=== PATIENT | male | born 1960 | race Caucasian/White ===

== ENCOUNTER 2021-03-16 11:48 | Inpatient (IN) | payer OTHER ==
--- NOTE | 2021-03-16 12:46 | CR ---
Chest: Portable view of the chest was obtained. Comparison: No prior chest imaging is available. Slight patchy areas of increased density are seen within both sides of the chest. Findings raise the possibility of possible Covid pneumonia. Lungs otherwise are clear. Heart size is normal. Tortuous thoracic aorta is seen. Bony structures show nothing acute. Impression: 1. Findings suspicious for mild Covid pneumonia. Please correlate. 2. Nothing acute is otherwise seen. Diagnostic code #3
[2021-03-16] MEDS ORDERED: Dexamethasone 4 MG Tab PO ONE (13:08)
[2021-03-16] MEDS ORDERED: Ketorolac 30 MG/ML SDV IVPUSH ONE (13:08)
[2021-03-16] MEDS ORDERED: LORazepam 2 MG/ML SDV IVPUSH ONE (13:08)
--- NOTE | 2021-03-16 13:26 | EDM.PDOC ---
ED HPI GENERAL MEDICAL PROBLEM - General Chief Complaint: Respiratory Problem Stated Complaint: SOB Time Seen by Provider: 03/16/21 12:10 Source of Information: Reports: Patient, Family, RN Notes Reviewed History Limitations: Reports: No Limitations - History of Present Illness INITIAL COMMENTS - FREE TEXT/NARRATIVE: Is a 60-year-old male presenting to the emergency department with complaints of Covid symptoms. Reports became ill approximately 6 days ago. Complains of fever, chills, body aches, fatigue, cough, shortness of breath. Does have some chest discomfort with coughing or deep breathing but denies chest pain at rest. He has had no abdominal pain, nausea, vomiting, or diarrhea. Reports has been eating and drinking well. Denies any chronic underlying medical conditions. He took NyQuil around 2 AM this morning but has taken nothing since that time. 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 He was not vaccinated against Covid. Treatments PSYCHOLOGY ASSOCIATE: Reports: Other (see below) Other Treatments PSYCHOLOGY ASSOCIATE: none Generalized Pain Score (Numeric/FACES): 7 - Related Data Allergies Allergy/AdvReac Type Severity Reaction Status Date / Time Penicillins Allergy Intermediate Rash Verified 03/16/21 16:09 codeine AdvReac Mild Vomiting Verified 03/16/21 16:03 Home Meds: Home Meds . [No Known Home Meds] 03/16/21 [History] Past Medical History - Past Health History Medical/Surgical History: Denies Medical/Surgical History - Infectious Disease History Infectious Disease History: Reports: Chicken Pox, Mumps Social & Family History - Tobacco Use Tobacco Use Status *Q: Former Tobacco User Used Tobacco, but Quit: Yes Month/Year Tobacco Last Used: 5 - Caffeine Use Caffeine Use: Reports: None - Recreational Drug Use Recreational Drug Use: No ED ROS GENERAL - Review of Systems Review Of Systems: See Below Constitutional: Reports: Fever, Chills, Weakness, Fatigue HEENT: Reports: No Symptoms Respiratory: Reports: Shortness of Breath, Pleuritic Chest Pain, Cough Cardiovascular: Reports: Dyspnea on Exertion. Denies: Lightheadedness, Palpitations Endocrine: Reports: No Symptoms GI/Abdominal: Reports: No Symptoms : Reports: No Symptoms Musculoskeletal: Reports: No Symptoms Skin: Reports: No Symptoms Neurological: Reports: No Symptoms Psychiatric: Reports: No Symptoms Hematologic/Lymphatic: Reports: No Symptoms Immunologic: Reports: No Symptoms ED EXAM, GENERAL - Physical Exam Exam: See Below Exam Limited By: No Limitations General Appearance: Alert, WD/WN, Anxious Respiratory/Chest: No Respiratory Distress, No Accessory Muscle Use, Chest Non-Tender, Decreased Breath Sounds, Other (Fine crackles to bilateral bases posteriorly.) Cardiovascular: Normal Peripheral Pulses, Regular Rate, Rhythm, No Edema, No Gallop, No JVD, No Murmur, No Rub GI/Abdominal: Normal Bowel Sounds, Soft, Non-Tender, No Organomegaly, No Distention, No Abnormal Bruit, No Mass Neurological: Alert, Oriented, CN II-XII Intact, Normal Cognition, Normal Gait, Normal Reflexes, No Motor/Sensory Deficits Psychiatric: Anxious Skin Exam: Warm, Dry, Intact, Normal Color, No Rash #1 Interpretation EKG Date: 03/16/21 Time: 12:43 Rhythm: NSR Rate (Beats/Min): 98 [place]: Normal P-Wave: Present QRS: Normal ST-T: Normal QT: Normal DE/PQ Interval: borderline shortened RADHA Course - Vital Signs Last Recorded V/S: Last Vital Signs Temp 97.5 F 03/16/21 15:19 Pulse 86 03/16/21 15:19 Resp 16 03/16/21 15:19 BP 123/73 03/16/21 15:19 Pulse Ox 94 L 03/16/21 15:19 - Orders/Labs/Meds Orders: Active Orders 24 hr Category Date Time Status Admission Status [Patient Status] [ADT] Routine ADT 03/16/21 14:50 Active Medication Orders Acetaminophen (Acetaminophen 325 Mg Tab) 650 mg PO Q4H PRN PRN Reason: Pain (Mild 1-3)/fever Hydrocodone Bitart/Acetaminophen (Acetaminophen/Hydrocodone 325-5 Mg Tab) 1 tab PO Q4H PRN PRN Reason: Pain (moderate 4-6) Albuterol (Albuterol 6.7 Gm Inhaler) 0 gm INH Q4H PRN PRN Reason: Shortness of Breath Albuterol/Ipratropium (Albuterol/Ipratropium 3.0-0.5 Mg/3 Ml Neb Soln) 3 ml NEB Q4HRRT PRN PRN Reason: Shortness of Breath Benzonatate (Benzonatate 100 Mg Cap) 200 mg PO Q8H PRN PRN Reason: Cough Dexamethasone (Dexamethasone 4 Mg Tab) 6 mg PO DAILY [facility] Stop: 03/25/21 09:01 Enoxaparin Sodium (Enoxaparin 40 Mg/0.4 Ml Syringe) 40 mg SUBCUT DAILY [facility] Guaifenesin/Codeine Phosphate (Codeine/Guaifenesin 10-100 Mg/5 Ml Syrup 5 Ml Cup) 5 ml PO Q4H PRN PRN Reason: Cough Remdesivir 100 mg/ Sodium (Chloride) 100 mls @ 100 mls/hr IV Q24H [facility] Stop: 03/20/21 17:59 Ondansetron HCl (Ondansetron 4 Mg/2 Ml Sdv) 4 mg IV Q6H PRN PRN Reason: Nausea/Vomiting Labs: Laboratory Tests 03/16/21 03/16/21 03/16/21 Range/Units 12:20 12:55 12:55 WBC 5.42 (4.23-9.07) K/mm3 RBC 5.74 (4.63-6.08) M/mm3 Hgb 16.5 (13.7-17.5) gm/dl Hct 51.5 H (40.1-51.0) % MCV 89.7 (79.0-92.2) fl MCH 28.7 (25.7-32.2) pg MCHC 32.0 L (32.2-35.5) g/dl RDW Std Deviation 47.1 H (35.1-43.9) fL Plt Count 152 L (163-337) K/mm3 MPV 11.6 (9.4-12.3) fl Neut % (Auto) 82.2 H (34.0-67.9) % Lymph % (Auto) 11.1 L (21.8-53.1) % [place] % (Auto) 5.9 (5.3-12.2) % Eos % (Auto) 0.2 L (0.8-7.0) Baso % (Auto) 0.2 (0.1-1.2) % Neut # (Auto) 4.46 (1.78-5.38) K/mm3 Lymph # (Auto) 0.60 L (1.32-3.57) K/mm3 [place] # (Auto) 0.32 (0.30-0.82) K/mm3 Eos # (Auto) 0.01 L (0.04-0.54) K/mm3 Baso # (Auto) 0.01 (0.01-0.08) K/mm3 D-Dimer, Quantitative 0.76 H (0.19-0.50) mg/L Sodium (136-145) mEq/L Potassium (3.5-5.1) mEq/L Chloride (98-107) mEq/L Carbon Dioxide (21-32) mEq/L Anion Gap (5-15) BUN (7-18) mg/dL Creatinine (0.7-1.3) mg/dL Est Cr Clr Drug Dosing mL/min Estimated GFR (MDRD) (>60) mL/min BUN/Creatinine Ratio (14-18) Glucose (70-99) mg/dL Calcium (8.5-10.1) mg/dL Total Bilirubin (0.2-1.0) mg/dL AST (15-37) U/L ALT (16-63) U/L Alkaline Phosphatase (46-116) U/L Troponin I (0.00-0.056) ng/mL C-Reactive Protein (<1.0) mg/dL NT-Pro-B Natriuret Pep (0-125) pg/mL Total Protein (6.4-8.2) g/dl Albumin (3.4-5.0) g/dl Globulin gm/dL Albumin/Globulin Ratio (1-2) SARS-CoV-2 RNA (DERRELL) Positive H (NEGATIVE) 03/16/21 03/16/21 Range/Units 12:55 12:55 WBC (4.23-9.07) K/mm3 RBC (4.63-6.08) M/mm3 Hgb (13.7-17.5) gm/dl Hct (40.1-51.0) % MCV (79.0-92.2) fl MCH (25.7-32.2) pg MCHC (32.2-35.5) g/dl RDW Std Deviation (35.1-43.9) fL Plt Count (163-337) K/mm3 MPV (9.4-12.3) fl Neut % (Auto) (34.0-67.9) % Lymph % (Auto) (21.8-53.1) % [place] % (Auto) (5.3-12.2) % Eos % (Auto) (0.8-7.0) Baso % (Auto) (0.1-1.2) % Neut # (Auto) (1.78-5.38) K/mm3 Lymph # (Auto) (1.32-3.57) K/mm3 [place] # (Auto) (0.30-0.82) K/mm3 Eos # (Auto) (0.04-0.54) K/mm3 Baso # (Auto) (0.01-0.08) K/mm3 D-Dimer, Quantitative (0.19-0.50) mg/L Sodium 137 (136-145) mEq/L Potassium 3.8 (3.5-5.1) mEq/L Chloride 102 (98-107) mEq/L Carbon Dioxide 27 (21-32) mEq/L Anion Gap 11.8 (5-15) BUN 18 (7-18) mg/dL Creatinine 1.3 (0.7-1.3) mg/dL Est Cr Clr Drug Dosing 69.61 mL/min Estimated GFR (MDRD) 56 (>60) mL/min BUN/Creatinine Ratio 13.8 L (14-18) Glucose 152 H (70-99) mg/dL Calcium 8.5 (8.5-10.1) mg/dL Total Bilirubin 0.5 (0.2-1.0) mg/dL AST 37 (15-37) U/L ALT 34 (16-63) U/L Alkaline Phosphatase 110 (46-116) U/L Troponin I < 0.017 (0.00-0.056) ng/mL C-Reactive Protein 5.7 H* (<1.0) mg/dL NT-Pro-B Natriuret Pep 58 (0-125) pg/mL Total Protein 7.1 (6.4-8.2) g/dl Albumin 2.9 L (3.4-5.0) g/dl Globulin 4.2 gm/dL Albumin/Globulin Ratio 0.7 L (1-2) SARS-CoV-2 RNA (DERRELL) (NEGATIVE) Meds: Medications Generic Name Dose Route Start Last Admin Trade Name Freq PRN Reason Stop Dose Admin Acetaminophen 650 mg 03/16/21 15:59 Acetaminophen 325 Mg Tab PO Q4H PRN Pain (Mild 1-3)/fever Hydrocodone Bitart/Acetaminophen 1 tab 03/16/21 16:08 Acetaminophen/Hydrocodone 325-5 Mg Tab PO Q4H PRN Pain (moderate 4-6) Albuterol 0 gm 03/16/21 16:04 Albuterol 6.7 Gm Inhaler INH Q4H PRN Shortness of Breath Albuterol/Ipratropium 3 ml 03/16/21 16:04 Albuterol/Ipratropium 3.0-0.5 Mg/3 Ml Neb Soln NEB Q4HRRT PRN Shortness of Breath Benzonatate 200 mg 03/16/21 16:06 Benzonatate 100 Mg Cap PO Q8H PRN Cough Dexamethasone 6 mg 03/17/21 09:00 Dexamethasone 4 Mg Tab PO 03/25/21 09:01 DAILY [facility] Enoxaparin Sodium 40 mg 03/17/21 09:00 Enoxaparin 40 Mg/0.4 Ml Syringe SUBCUT DAILY [facility] Guaifenesin/Codeine Phosphate 5 ml 03/16/21 16:07 Codeine/Guaifenesin 10-100 Mg/5 Ml Syrup 5 Ml Cup PO Q4H PRN Cough Remdesivir 100 mg/ Sodium 100 mls @ 100 mls/hr 03/17/21 17:00 Chloride IV 03/20/21 17:59 Q24H [facility] Ondansetron HCl 4 mg 03/16/21 15:59 Ondansetron 4 Mg/2 Ml Sdv IV Q6H PRN Nausea/Vomiting Discontinued Medications Generic Name Dose Route Start Last Admin Trade Name Freq PRN Reason Stop Dose Admin Dexamethasone 6 mg 03/16/21 13:08 03/16/21 13:20 Dexamethasone 4 Mg Tab PO 03/16/21 13:09 6 mg ONETIME ONE Administration Remdesivir 200 mg/ Sodium 250 mls @ 250 mls/hr 03/16/21 17:00 03/16/21 17:03 Chloride IV 03/16/21 17:59 250 mls/hr ONETIME ONE Administration Ketorolac Tromethamine 30 mg 03/16/21 13:08 03/16/21 13:19 Ketorolac 30 Mg/Ml Sdv IVPUSH 03/16/21 13:09 30 mg ONETIME ONE Administration Lorazepam 0.5 mg 03/16/21 13:08 03/16/21 13:19 Lorazepam 2 Mg/Ml Sdv IVPUSH 03/16/21 13:09 0.5 mg ONETIME ONE Administration - Re-Assessments/Exams Free Text/Narrative Re-Assessment/Exam: Patient is a 60-year-old male presenting to the emergency department for evaluation of Covid symptoms. Has been ill for approximately 6 days. Initial oxygen saturation on triage was 92%, however he came down to 86% on room air when resting. He is currently on 3 L of oxygen by nasal cannula saturating in the low to mid 90s. On exam, lung sounds reveal fine crackles to the bilateral posterior bases. Exam is otherwise unremarkable. Patient is very anxious. Reports he gets very claustrophobic and that he is "freaking out ". He also reports he does not do well with needles. Patient has not taken any thing for pain or fever since 2 AM this morning when he took NyQuil. Presentation is highly suspicious for Covid. I ordered blood work, chest x-ray, EKG, Covid indira t. I will give Toradol, Ativan, and dexamethasone. 03/16/21 14:06 Hematology is significant for D-dimer elevated 0.76, glucose 152, CRP 5.7. Patient is Covid positive. Chest x-ray shows mild bilateral Covid pneumonia. Patient is resting comfortably after the Ativan. He is in agreement with admission to the hospital for Covid pneumonia and hypoxia. Case was discussed with hospitalist, Dr. Kamara. He has accepted the patient for admission. Departure - Departure Time of Disposition: 14:06 Disposition: Admitted As Inpatient 66 Condition: Good Clinical Impression: Pneumonia due to COVID-19 virus, Hypoxia - Discharge Information Sepsis Event Note (ED) - Focused Exam Vital Signs: Vital Signs Temp Pulse Resp BP Pulse Ox Pulse Ox 03/16/21 12:48 90 L 03/16/21 12:10 97.5 F 88 20 133/78 92 L - My Orders Last 24 Hours: My Active Orders 03/16/21 14:50 Admission Status [Patient Status] [ADT] Routine - Assessment/Plan Last 24 Hours: My Active Orders 03/16/21 14:50 Admission Status [Patient Status] [ADT] Routine
--- NOTE | 2021-03-16 15:15 | PCM.HP.2 ---
<PetersongilesLisa mata - Last Filed: 03/16/21 16:10> H&P History of Present Illness - General Date of Service: 03/16/21 Admit Problem/Dx: Admission Diagnosis/Problem Admission Diagnosis/Problem Hypoxia Source of Information: Patient, Other (ED admission note) History Limitations: Reports: Altered Mental Status - History of Present Illness Initial Comments - Free Text/Narative: Ignacio is a 60yo white male who presented to the ED on 03/16/2021 due to worsening shortness of breath. History was difficult to obtain from patient as he was moderately sedated, so most of history is from ED documentation. Symptoms started 7 days ago and include fever, chills, cough, shortness of breath, and fatigue. He denies abdominal pain, nausea, vomiting or diarrhea. Eating and drinking has been normal. He denies any other medical problems. Denies any sick contacts and has not received COVID-19 vaccination. COVID-19 test was positive in the ED. CRP was 5.7, D-dimer was 0.76 in the ED. CXR showed slightly patchy infiltrates in lungs bilaterally consistent with COVID-19 pneumonia. Patient received Ativan 0.5mg and Toradol 30mg secondary to anxiety and claustrophobia from telemetry monitors and pain of 7/10 in ED. Generalized Pain Score (Numeric/FACES): 7 - Related Data Allergies/Adverse Reactions: Allergies Allergy/AdvReac Type Severity Reaction Status Date / Time Penicillins Allergy Intermediate Rash Verified 03/16/21 16:09 codeine AdvReac Mild Vomiting Verified 03/16/21 16:03 Home Medications: Home Meds . [No Known Home Meds] 03/16/21 [History] Past Medical History - Past Health History Medical/Surgical History: Denies Medical/Surgical History - Infectious Disease History Infectious Disease History: Reports: Chicken Pox, Mumps Social & Family History - Tobacco Use Tobacco Use Status *Q: Former Tobacco User Used Tobacco, but Quit: Yes Month/Year Tobacco Last Used: 5 - Caffeine Use Caffeine Use: Reports: None - Recreational Drug Use Recreational Drug Use: No H&P Review of Systems - Review of Systems: Review Of Systems: Comprehensive ROS is negative, except as noted in HPI. Exam - Exam Exam: See Below - Vital Signs Vital Signs: Last Vital Signs Temp 97.5 F 03/16/21 12:10 Pulse 88 11/03/21 12:10 Resp 20 03/16/21 12:10 BP 133/78 03/16/21 12:10 Pulse Ox 90 L 03/16/21 12:48 Weight: 179 lb 9 oz - Exam Quality Assessment: Supplemental Oxygen General: Cooperative, Sedated HEENT: Conjunctiva Clear, EOMI, Hearing Intact, Mucosa Moist & [place], Pupils Equal Lungs: Crackles (in all lung fernando), Other (requiring 4.0L supplemental O2 by nasal cannula) Cardiovascular: Regular Rate, Regular Rhythm, Normal S1, Normal S2 GI/Abdominal Exam: Normal Bowel Sounds, Soft, Non-Tender, No Distention Extremities: Normal Inspection, No Pedal Edema Neurological: Cranial Nerves Intact Neuro Extensive - Mental Status: Opens Eyes to Commands, Slow Response to Commands, Other (moderately sedated at time of exam) Psychiatric: Normal Affect, Normal Mood - Patient Data Lab Results Last 24 hrs: Laboratory Results - last 24 hr 03/16/21 03/16/21 03/16/21 Range/Units 12:20 12:55 12:55 WBC 5.42 (4.23-9.07) K/mm3 RBC 5.74 (4.63-6.08) M/mm3 Hgb 16.5 (13.7-17.5) gm/dl Hct 51.5 H (40.1-51.0) % MCV 89.7 (79.0-92.2) fl MCH 28.7 (25.7-32.2) pg MCHC 32.0 L (32.2-35.5) g/dl RDW Std Deviation 47.1 H (35.1-43.9) fL Plt Count 152 L (163-337) K/mm3 MPV 11.6 (9.4-12.3) fl Neut % (Auto) 82.2 H (34.0-67.9) % Lymph % (Auto) 11.1 L (21.8-53.1) % [place] % (Auto) 5.9 (5.3-12.2) % Eos % (Auto) 0.2 L (0.8-7.0) Baso % (Auto) 0.2 (0.1-1.2) % Neut # (Auto) 4.46 (1.78-5.38) K/mm3 Lymph # (Auto) 0.60 L (1.32-3.57) K/mm3 [place] # (Auto) 0.32 (0.30-0.82) K/mm3 Eos # (Auto) 0.01 L (0.04-0.54) K/mm3 Baso # (Auto) 0.01 (0.01-0.08) K/mm3 D-Dimer, Quantitative 0.76 H (0.19-0.50) mg/L Sodium (136-145) mEq/L Potassium (3.5-5.1) mEq/L Chloride (98-107) mEq/L Carbon Dioxide (21-32) mEq/L Anion Gap (5-15) BUN (7-18) mg/dL Creatinine (0.7-1.3) mg/dL Est Cr Clr Drug Dosing mL/min Estimated GFR (MDRD) (>60) mL/min BUN/Creatinine Ratio (14-18) Glucose (70-99) mg/dL Calcium (8.5-10.1) mg/dL Total Bilirubin (0.2-1.0) mg/dL AST (15-37) U/L ALT (16-63) U/L Alkaline Phosphatase (46-116) U/L Troponin I (0.00-0.056) ng/mL C-Reactive Protein (<1.0) mg/dL NT-Pro-B Natriuret Pep (0-125) pg/mL Total Protein (6.4-8.2) g/dl Albumin (3.4-5.0) g/dl Globulin gm/dL Albumin/Globulin Ratio (1-2) SARS-CoV-2 RNA (DERRELL) Positive H (NEGATIVE) 03/16/21 03/16/21 Range/Units 12:55 12:55 WBC (4.23-9.07) K/mm3 RBC (4.63-6.08) M/mm3 Hgb (13.7-17.5) gm/dl Hct (40.1-51.0) % MCV (79.0-92.2) fl MCH (25.7-32.2) pg MCHC (32.2-35.5) g/dl RDW Std Deviation (35.1-43.9) fL Plt Count (163-337) K/mm3 MPV (9.4-12.3) fl Neut % (Auto) (34.0-67.9) % Lymph % (Auto) (21.8-53.1) % [place] % (Auto) (5.3-12.2) % Eos % (Auto) (0.8-7.0) Baso % (Auto) (0.1-1.2) % Neut # (Auto) (1.78-5.38) K/mm3 Lymph # (Auto) (1.32-3.57) K/mm3 [place] # (Auto) (0.30-0.82) K/mm3 Eos # (Auto) (0.04-0.54) K/mm3 Baso # (Auto) (0.01-0.08) K/mm3 D-Dimer, Quantitative (0.19-0.50) mg/L Sodium 137 (136-145) mEq/L Potassium 3.8 (3.5-5.1) mEq/L Chloride 102 (98-107) mEq/L Carbon Dioxide 27 (21-32) mEq/L Anion Gap 11.8 (5-15) BUN 18 (7-18) mg/dL Creatinine 1.3 (0.7-1.3) mg/dL Est Cr Clr Drug Dosing 69.61 mL/min Estimated GFR (MDRD) 56 (>60) mL/min BUN/Creatinine Ratio 13.8 L (14-18) Glucose 152 H (70-99) mg/dL Calcium 8.5 (8.5-10.1) mg/dL Total Bilirubin 0.5 (0.2-1.0) mg/dL AST 37 (15-37) U/L ALT 34 (16-63) U/L Alkaline Phosphatase 110 (46-116) U/L Troponin I < 0.017 (0.00-0.056) ng/mL C-Reactive Protein 5.7 H* (<1.0) mg/dL NT-Pro-B Natriuret Pep 58 (0-125) pg/mL Total Protein 7.1 (6.4-8.2) g/dl Albumin 2.9 L (3.4-5.0) g/dl Globulin 4.2 gm/dL Albumin/Globulin Ratio 0.7 L (1-2) SARS-CoV-2 RNA (DERRELL) (NEGATIVE) Result Diagrams: 11/03/21 12:55 03/16/21 12:55 Fredo Results Last 24 hrs: Microbiology 03/16/21 12:20 Influenza Type A Antigen Screen - Final Nasal, Unspecified NEGATIVE INFLUENZA A VIRUS AG REFERENCE RANGE: NEGATIVE Influenza Type B Antigen Screen - Final NEGATIVE INFLUENZA B VIRUS AG REFERENCE RANGE: NEGATIVE Sepsis Event Note - Focused Exam Vital Signs: Vital Signs Temp Pulse Resp BP Pulse Ox Pulse Ox 03/16/21 12:48 90 L 03/16/21 12:10 97.5 F 88 20 133/78 92 L - Problem List (1) Hypoxia SNOMED Code(s): 405716969 ICD Code: R09.02 - HYPOXEMIA Status: Acute Priority: High Current Visit: No (2) Pneumonia due to COVID-19 virus SNOMED Code(s): 588754713026495373 ICD Code: U07.1 - COVID-19; J12.82 - PNEUMONIA DUE TO CORONAVIRUS DISEASE 2019 Status: Acute Priority: High Current Visit: No Problem List Initiated/Reviewed/Updated: Yes Orders Last 24hrs: Active Orders 24 hr Category Date Time Status Admission Status [Patient Status] [ADT] Routine ADT 03/16/21 14:50 Active Assessment/Plan Comment:: 03/16/2021 Assessment: Ignacio is a 60yo white male who presented to the ED on 03/16/2021 due to worsening shortness of breath secondary to covid-19 pneumonia. Symptoms began 7 days prior to admission. COVID-19 test was positive in the ED and was his first test. CXR showed slightly patchy infiltrates in lungs bilaterally consistent with COVID-19 pneumonia. He has not received COVID-19 vaccination. He has no other medical problems. O2 and dexamethasone were started in the ED. Plan: * Admit to medical floor * Standard COVID-19 precautions and treatment * Start 5-day course of Remdesivir * Continue dexamethasone 6mg PO daily * DuoNeb q4hr PRN and albuterol inhaler 2 puffs q4hr PRN * Continue supplemental oxygen as needed to maintain O2 saturation above 87% * Obtain more complete history when sedation has worn off * VTE prophylaxis: Lovenox 40mg subcutaneous daily * Code status: full code <Cortney Ashley III - Last Filed: 03/16/21 16:26> H&P History of Present Illness - General Admit Problem/Dx: Admission Diagnosis/Problem Admission Diagnosis/Problem Hypoxia Exam - Vital Signs Vital Signs: Last Vital Signs Temp 97.5 F 03/16/21 15:19 Pulse 86 03/16/21 15:19 Resp 16 03/16/21 15:19 BP 123/73 03/16/21 15:19 Pulse Ox 94 L 03/16/21 15:19 - Patient Data Lab Results Last 24 hrs: Laboratory Results - last 24 hr 03/16/21 03/16/21 03/16/21 Range/Units 12:20 12:55 12:55 WBC 5.42 (4.23-9.07) K/mm3 RBC 5.74 (4.63-6.08) M/mm3 Hgb 16.5 (13.7-17.5) gm/dl Hct 51.5 H (40.1-51.0) % MCV 89.7 (79.0-92.2) fl MCH 28.7 (25.7-32.2) pg MCHC 32.0 L (32.2-35.5) g/dl RDW Std Deviation 47.1 H (35.1-43.9) fL Plt Count 152 L (163-337) K/mm3 MPV 11.6 (9.4-12.3) fl Neut % (Auto) 82.2 H (34.0-67.9) % Lymph % (Auto) 11.1 L (21.8-53.1) % [place] % (Auto) 5.9 (5.3-12.2) % Eos % (Auto) 0.2 L (0.8-7.0) Baso % (Auto) 0.2 (0.1-1.2) % Neut # (Auto) 4.46 (1.78-5.38) K/mm3 Lymph # (Auto) 0.60 L (1.32-3.57) K/mm3 [place] # (Auto) 0.32 (0.30-0.82) K/mm3 Eos # (Auto) 0.01 L (0.04-0.54) K/mm3 Baso # (Auto) 0.01 (0.01-0.08) K/mm3 D-Dimer, Quantitative 0.76 H (0.19-0.50) mg/L Sodium (136-145) mEq/L Potassium (3.5-5.1) mEq/L Chloride (98-107) mEq/L Carbon Dioxide (21-32) mEq/L Anion Gap (5-15) BUN (7-18) mg/dL Creatinine (0.7-1.3) mg/dL Est Cr Clr Drug Dosing mL/min Estimated GFR (MDRD) (>60) mL/min BUN/Creatinine Ratio (14-18) Glucose (70-99) mg/dL Calcium (8.5-10.1) mg/dL Total Bilirubin (0.2-1.0) mg/dL AST (15-37) U/L ALT (16-63) U/L Alkaline Phosphatase (46-116) U/L Troponin I (0.00-0.056) ng/mL C-Reactive Protein (<1.0) mg/dL NT-Pro-B Natriuret Pep (0-125) pg/mL Total Protein (6.4-8.2) g/dl Albumin (3.4-5.0) g/dl Globulin gm/dL Albumin/Globulin Ratio (1-2) SARS-CoV-2 RNA (DERRELL) Positive H (NEGATIVE) 03/16/21 03/16/21 Range/Units 12:55 12:55 WBC (4.23-9.07) K/mm3 RBC (4.63-6.08) M/mm3 Hgb (13.7-17.5) gm/dl Hct (40.1-51.0) % MCV (79.0-92.2) fl MCH (25.7-32.2) pg MCHC (32.2-35.5) g/dl RDW Std Deviation (35.1-43.9) fL Plt Count (163-337) K/mm3 MPV (9.4-12.3) fl Neut % (Auto) (34.0-67.9) % Lymph % (Auto) (21.8-53.1) % [place] % (Auto) (5.3-12.2) % Eos % (Auto) (0.8-7.0) Baso % (Auto) (0.1-1.2) % Neut # (Auto) (1.78-5.38) K/mm3 Lymph # (Auto) (1.32-3.57) K/mm3 [place] # (Auto) (0.30-0.82) K/mm3 Eos # (Auto) (0.04-0.54) K/mm3 Baso # (Auto) (0.01-0.08) K/mm3 D-Dimer, Quantitative (0.19-0.50) mg/L Sodium 137 (136-145) mEq/L Potassium 3.8 (3.5-5.1) mEq/L Chloride 102 (98-107) mEq/L Carbon Dioxide 27 (21-32) mEq/L Anion Gap 11.8 (5-15) BUN 18 (7-18) mg/dL Creatinine 1.3 (0.7-1.3) mg/dL Est Cr Clr Drug Dosing 69.61 mL/min Estimated GFR (MDRD) 56 (>60) mL/min BUN/Creatinine Ratio 13.8 L (14-18) Glucose 152 H (70-99) mg/dL Calcium 8.5 (8.5-10.1) mg/dL Total Bilirubin 0.5 (0.2-1.0) mg/dL AST 37 (15-37) U/L ALT 34 (16-63) U/L Alkaline Phosphatase 110 (46-116) U/L Troponin I < 0.017 (0.00-0.056) ng/mL C-Reactive Protein 5.7 H* (<1.0) mg/dL NT-Pro-B Natriuret Pep 58 (0-125) pg/mL Total Protein 7.1 (6.4-8.2) g/dl Albumin 2.9 L (3.4-5.0) g/dl Globulin 4.2 gm/dL Albumin/Globulin Ratio 0.7 L (1-2) SARS-CoV-2 RNA (DERRELL) (NEGATIVE) Result Diagrams: 03/16/21 12:55 03/16/21 12:55 Fredo Results Last 24 hrs: Microbiology 03/16/21 12:20 Influenza Type A Antigen Screen - Final Nasal, Unspecified NEGATIVE INFLUENZA A VIRUS AG REFERENCE RANGE: NEGATIVE Influenza Type B Antigen Screen - Final NEGATIVE INFLUENZA B VIRUS AG REFERENCE RANGE: NEGATIVE Sepsis Event Note - Focused Exam Vital Signs: Vital Signs Temp Temp Pulse Pulse Resp BP BP 03/16/21 15:19 97.5 F 86 16 123/73 03/16/21 12:48 03/16/21 12:10 97.5 F 88 20 133/78 Pulse Ox Pulse Ox 03/16/21 15:19 94 L 03/16/21 12:48 90 L 03/16/21 12:10 92 L - Problem List (1) Hypoxia SNOMED Code(s): 702269090 ICD Code: R09.02 - HYPOXEMIA Status: Acute Priority: High Current Visit : No (2) Pneumonia due to COVID-19 virus SNOMED Code(s): 687509168640442026 ICD Code: U07.1 - COVID-19; J12.82 - PNEUMONIA DUE TO CORONAVIRUS DISEASE 2019 Status: Acute Priority: High Current Visit: No Problem List Initiated/Reviewed/Updated: Yes Orders Last 24hrs: Active Orders 24 hr Category Date Time Status Admission Status [Patient Status] [ADT] Routine ADT 03/16/21 14:50 Active Nurse Communication: Isolation [RC] ASDIRECTED Care 03/16/21 16:03 Active Oxygen Therapy [RC] PRN Care 03/16/21 15:59 Active RT Aerosol Therapy [RC] ASDIRECTED Care 03/16/21 16:05 Active RT Chest Physiotherapy [RC] ASDIRECTED Care 03/16/21 16:05 Active RT Incentive Spirometry [RC] ASDIRECTED Care 03/16/21 16:05 Active RT Post Treatment Assessment [RC] Click to Edit Care 03/16/21 16:04 Active RT Pre-Treatment Assessment [RC] Click to Edit Care 03/16/21 16:04 Active Up With Assistance [RC] ASDIRECTED Care 03/16/21 15:59 Active VTE/DVT Education [RC] PER UNIT ROUTINE Care 03/16/21 15:59 Active Vital Signs [RC] Q4HR Care 03/16/21 15:59 Active PT Evaluation and Treatment [CONS] Routine Cons 03/16/21 15:59 Active Regular Diet [DIET] Diet 03/16/21 Dinner Active C-REACTIVE PROTEIN [CHEM] AM Lab 03/17/21 05:11 Ordered C-REACTIVE PROTEIN [CHEM] AM Lab 03/18/21 05:11 Ordered C-REACTIVE PROTEIN [CHEM] AM Lab 03/19/21 05:11 Ordered C-REACTIVE PROTEIN [CHEM] AM Lab 03/20/21 05:11 Ordered C-REACTIVE PROTEIN [CHEM] AM Lab 03/21/21 05:11 Ordered CBC WITH AUTO DIFF [HEME] AM Lab 03/17/21 05:11 Ordered CBC WITH AUTO DIFF [HEME] AM Lab 03/18/21 05:11 Ordered CBC WITH AUTO DIFF [HEME] AM Lab 03/19/21 05:11 Ordered CBC WITH AUTO DIFF [HEME] AM Lab 03/20/21 05:11 Ordered CBC WITH AUTO DIFF [HEME] AM Lab 03/21/21 05:11 Ordered CMP [COMPREHENSIVE METABOLIC PN,CMP] [CHEM] AM Lab 03/17/21 05:11 Ordered CMP [COMPREHENSIVE METABOLIC PN,CMP] [CHEM] AM Lab 03/18/21 05:11 Ordered CMP [COMPREHENSIVE METABOLIC PN,CMP] [CHEM] AM Lab 03/19/21 05:11 Ordered CMP [COMPREHENSIVE METABOLIC PN,CMP] [CHEM] AM Lab 03/20/21 05:11 Ordered CMP [COMPREHENSIVE METABOLIC PN,CMP] [CHEM] AM Lab 03/21/21 05:11 Ordered DD [D-DIMER QUANTITATIVE] [COAG] AM Lab 03/18/21 05:11 Ordered MAGNESIUM [CHEM] AM Lab 03/17/21 05:11 Ordered MAGNESIUM [CHEM] AM Lab 03/18/21 05:11 Ordered MAGNESIUM [CHEM] AM Lab 03/19/21 05:11 Ordered MAGNESIUM [CHEM] AM Lab 03/20/21 05:11 Ordered MAGNESIUM [CHEM] AM Lab 03/21/21 05:11 Ordered PHOSPHORUS [CHEM] AM Lab 03/17/21 05:11 Ordered PHOSPHORUS [CHEM] AM Lab 03/18/21 05:11 Ordered PHOSPHORUS [CHEM] AM Lab 03/19/21 05:11 Ordered PHOSPHORUS [CHEM] AM Lab 03/20/21 05:11 Ordered PHOSPHORUS [CHEM] AM Lab 03/21/21 05:11 Ordered PROCALCITONIN [REF] Routine Lab 03/16/21 12:55 Received Acetaminophen [TylenoL] Med 03/16/21 15:59 Active 650 mg PO Q4H PRN Acetaminophen/HYDROcodone [[place] 325-5 MG] Med 03/16/21 16:08 Active 1 tab PO Q4H PRN Albuterol [Proventil HFA] Med 03/16/21 16:04 Active See Dose Instructions INH Q4H PRN Albuterol/Ipratropium [DuoNeb 3.0-0.5 MG/3 ML] Med 03/16/21 16:04 Active 3 ml NEB Q4HRRT PRN Benzonatate [Tessalon Perles] Med 03/16/21 16:06 Active 200 mg PO Q8H PRN Codeine/guaiFENesin [Robitussin AC] Med 03/16/21 16:07 Active 5 ml PO Q4H PRN Enoxaparin [Lovenox] Med 03/17/21 09:00 Active 40 mg SUBCUT DAILY Ondansetron [Zofran] Med 03/16/21 15:59 Active 4 mg IV Q6H PRN Remdesivir 100 mg Med 03/17/21 17:00 Active Sodium Chloride 0.9% [Normal Saline] 100 ml IV Q24H Remdesivir 200 mg Med 03/16/21 17:00 Active Sodium Chloride 0.9% [Normal Saline] 250 ml IV ONETIME dexAMETHasone Med 03/17/21 09:00 Active 6 mg PO DAILY Isolation [COMM] Stat Oth 03/16/21 16:02 Ordered Code Status [Resuscitation Status] Routine Resus Stat 03/16/21 15:45 Ordered Medication Orders Acetaminophen (Acetaminophen 325 Mg Tab) 650 mg PO Q4H PRN PRN Reason: Pain (Mild 1-3)/fever Hydrocodone Bitart/Acetaminophen (Acetaminophen/Hydrocodone 325-5 Mg Tab) 1 tab PO Q4H PRN PRN Reason: Pain (moderate 4-6) Albuterol (Albuterol 6.7 Gm Inhaler) 0 gm INH Q4H PRN PRN Reason: Shortness of Breath Albuterol/Ipratropium (Albuterol/Ipratropium 3.0-0.5 Mg/3 Ml Neb Soln) 3 ml NEB Q4HRRT PRN PRN Reason: Shortness of Breath Benzonatate (Benzonatate 100 Mg Cap) 200 mg PO Q8H PRN PRN Reason: Cough Dexamethasone (Dexamethasone 4 Mg Tab) 6 mg PO DAILY RIANA Stop: 03/25/21 09:01 Enoxaparin Sodium (Enoxaparin 40 Mg/0.4 Ml Syringe) 40 mg SUBCUT DAILY RIANA Guaifenesin/Codeine Phosphate (Codeine/Guaifenesin 10-100 Mg/5 Ml Syrup 5 Ml Cup) 5 ml PO Q4H PRN PRN Reason: Cough Remdesivir 100 mg/ Sodium (Chloride) 100 mls @ 100 mls/hr IV Q24H RIANA Stop: 03/20/21 17:59 Remdesivir 200 mg/ Sodium (Chloride) 250 mls @ 250 mls/hr IV ONETIME ONE Stop: 03/16/21 17:59 Ondansetron HCl (Ondansetron 4 Mg/2 Ml Sdv) 4 mg IV Q6H PRN PRN Reason: Nausea/Vomiting Assessment/Plan Comment:: Patient was seen, examined, and evaluated personally and I agree with the above findings, assessment, and plan. - Mortality Measure Prognosis:: Good
[2021-03-16] MEDS ORDERED: Acetaminophen 325 MG Tab PO PRN (15:59)
[2021-03-16] MEDS ORDERED: Ondansetron 4 MG/2 ML SDV IV PRN (15:59)
[2021-03-16] MEDS ORDERED: Albuterol/Ipratropium 3.0-0.5 MG/3 ML Neb Soln NEB PRN (16:04)
[2021-03-16] MEDS ORDERED: Albuterol 6.7 GM Inhaler INH PRN (16:04)
[2021-03-16] MEDS ORDERED: Benzonatate 100 MG Cap PO PRN (16:06)
[2021-03-16] MEDS ORDERED: Codeine/guaiFENesin 10-100 MG/5 ML Syrup 5 ML Cup PO PRN (16:07)
[2021-03-16] MEDS ORDERED: Acetaminophen/HYDROcodone 325-5 MG Tab PO PRN (16:08)
[2021-03-16] MEDS ORDERED: REMDESIVIR 200 MG in Sodium Chloride 0.9% 250 ML IV ONE (17:00)
[2021-03-17] MEDS ORDERED: traZODone 50 MG Tab PO PRN (01:42)
--- NOTE | 2021-03-17 08:36 | PCM.PN ---
- General Info Date of Service: 03/17/21 Admission Dx/Problem (Free Text): Admission Diagnosis/Problem Admission Diagnosis/Problem Hypoxia Functional Status: Reports: Pain Controlled, Tolerating Diet, Ambulating, Urinating, Incentive Spirometry, Other (Acapella ). Denies: New Symptoms - Review of Systems General: Reports: Weakness, Fatigue, Malaise. Denies: Fever, Chills HEENT: Reports: No Symptoms. Denies: Headaches, Sore Throat Pulmonary: Reports: Shortness of Breath, Pleuritic Chest Pain, Cough, Sputum. Denies: Wheezing Cardiovascular: Reports: Chest Pain, Dyspnea on Exertion. Denies: Palpitations, Edema Gastrointestinal: Reports: No Symptoms. Denies: Abdominal Pain, Constipation, Diarrhea, Nausea, Vomiting Genitourinary: Reports: No Symptoms. Denies: Pain Musculoskeletal: Reports: No Symptoms Skin: Reports: No Symptoms. Denies: Cyanosis Neurological: Reports: No Symptoms. Denies: Headache, Numbness, Syncope, Tingling, Difficulty Walking, Gait Disturbance Psychiatric: Reports: Anxiety - Patient Data Vitals - Most Recent: Last Vital Signs Temp 98.2 F 03/17/21 04:08 Pulse 88 03/17/21 04:08 Resp 16 03/17/21 04:08 BP 128/77 03/17/21 04:08 Pulse Ox 86 L 03/17/21 04:08 Weight - Most Recent: 177 lb 6.4 oz I&O - Last 24 Hours: Intake & Output 03/16/21 03/17/21 03/17/21 22:59 06:59 14:59 Intake Total 600 Output Total 400 Balance 200 Lab Results Last 24 Hours: Laboratory Results - last 24 hr 03/16/21 03/16/21 03/16/21 Range/Units 12:20 12:55 12:55 WBC 5.42 (4.23-9.07) K/mm3 RBC 5.74 (4.63-6.08) M/mm3 Hgb 16.5 (13.7-17.5) gm/dl Hct 51.5 H (40.1-51.0) % MCV 89.7 (79.0-92.2) fl MCH 28.7 (25.7-32.2) pg MCHC 32.0 L (32.2-35.5) g/dl RDW Std Deviation 47.1 H (35.1-43.9) fL Plt Count 152 L (163-337) K/mm3 MPV 11.6 (9.4-12.3) fl Neut % (Auto) 82.2 H (34.0-67.9) % Lymph % (Auto) 11.1 L (21.8-53.1) % Whitley % (Auto) 5.9 (5.3-12.2) % Eos % (Auto) 0.2 L (0.8-7.0) Baso % (Auto) 0.2 (0.1-1.2) % Neut # (Auto) 4.46 (1.78-5.38) K/mm3 Lymph # (Auto) 0.60 L (1.32-3.57) K/mm3 Whitley # (Auto) 0.32 (0.30-0.82) K/mm3 Eos # (Auto) 0.01 L (0.04-0.54) K/mm3 Baso # (Auto) 0.01 (0.01-0.08) K/mm3 Manual Slide Review D-Dimer, Quantitative 0.76 H (0.19-0.50) mg/L Sodium (136-145) mEq/L Potassium (3.5-5.1) mEq/L Chloride (98-107) mEq/L Carbon Dioxide (21-32) mEq/L Anion Gap (5-15) BUN (7-18) mg/dL Creatinine (0.7-1.3) mg/dL Est Cr Clr Drug Dosing mL/min Estimated GFR (MDRD) (>60) mL/min BUN/Creatinine Ratio (14-18) Glucose (70-99) mg/dL Calcium (8.5-10.1) mg/dL Total Bilirubin (0.2-1.0) mg/dL AST (15-37) U/L ALT (16-63) U/L Alkaline Phosphatase (46-116) U/L Troponin I (0.00-0.056) ng/mL C-Reactive Protein (<1.0) mg/dL NT-Pro-B Natriuret Pep (0-125) pg/mL Total Protein (6.4-8.2) g/dl Albumin (3.4-5.0) g/dl Globulin gm/dL Albumin/Globulin Ratio (1-2) SARS-CoV-2 RNA (DERRELL) Positive H (NEGATIVE) 03/16/21 03/16/21 03/17/21 Range/Units 12:55 12:55 06:57 WBC 4.01 L (4.23-9.07) K/mm3 RBC 6.25 H (4.63-6.08) M/mm3 Hgb 18.1 H D (13.7-17.5) gm/dl Hct 54.8 H (40.1-51.0) % MCV 87.7 (79.0-92.2) fl MCH 29.0 (25.7-32.2) pg MCHC 33.0 (32.2-35.5) g/dl RDW Std Deviation 47.1 H (35.1-43.9) fL Plt Count 81 L (163-337) K/mm3 MPV 11.7 (9.4-12.3) fl Neut % (Auto) 70.7 H (34.0-67.9) % Lymph % (Auto) 18.2 L (21.8-53.1) % Whitley % (Auto) 6.7 (5.3-12.2) % Eos % (Auto) 3.2 (0.8-7.0) Baso % (Auto) 0.0 L (0.1-1.2) % Neut # (Auto) 2.83 (1.78-5.38) K/mm3 Lymph # (Auto) 0.73 L (1.32-3.57) K/mm3 Whitley # (Auto) 0.27 L (0.30-0.82) K/mm3 Eos # (Auto) 0.13 (0.04-0.54) K/mm3 Baso # (Auto) 0.00 L (0.01-0.08) K/mm3 Manual Slide Review Abnormal smear D-Dimer, Quantitative (0.19-0.50) mg/L Sodium 137 (136-145) mEq/L Potassium 3.8 (3.5-5.1) mEq/L Chloride 102 (98-107) mEq/L Carbon Dioxide 27 (21-32) mEq/L Anion Gap 11.8 (5-15) BUN 18 (7-18) mg/dL Creatinine 1.3 (0.7-1.3) mg/dL Est Cr Clr Drug Dosing 69.61 mL/min Estimated GFR (MDRD) 56 (>60) mL/min BUN/Creatinine Ratio 13.8 L (14-18) Glucose 152 H (70-99) mg/dL Calcium 8.5 (8.5-10.1) mg/dL Total Bilirubin 0.5 (0.2-1.0) mg/dL AST 37 (15-37) U/L ALT 34 (16-63) U/L Alkaline Phosphatase 110 (46-116) U/L Troponin I < 0.017 (0.00-0.056) ng/mL C-Reactive Protein 5.7 H* (<1.0) mg/dL NT-Pro-B Natriuret Pep 58 (0-125) pg/mL Total Protein 7.1 (6.4-8.2) g/dl Albumin 2.9 L (3.4-5.0) g/dl Globulin 4.2 gm/dL Albumin/Globulin Ratio 0.7 L (1-2) SARS-CoV-2 RNA (DERRELL) (NEGATIVE) Fredo Results Last 24 Hours: Microbiology 03/16/21 12:20 Influenza Type A Antigen Screen - Final Nasal, Unspecified NEGATIVE INFLUENZA A VIRUS AG REFERENCE RANGE: NEGATIVE Influenza Type B Antigen Screen - Final NEGATIVE INFLUENZA B VIRUS AG REFERENCE RANGE: NEGATIVE Med Orders - Current: Current Medications Acetaminophen (Acetaminophen 325 Mg Tab) 650 mg PO Q4H PRN PRN Reason: Pain (Mild 1-3)/fever Hydrocodone Bitart/Acetaminophen (Acetaminophen/Hydrocodone 325-5 Mg Tab) 1 tab PO Q4H PRN PRN Reason: Pain (moderate 4-6) Albuterol (Albuterol 6.7 Gm Inhaler) 0 gm INH Q4H PRN PRN Reason: Shortness of Breath Albuterol/Ipratropium (Albuterol/Ipratropium 3.0-0.5 Mg/3 Ml Neb Soln) 3 ml NEB Q4HRRT PRN PRN Reason: Shortness of Breath Last Admin: 03/16/21 20:18 Dose: 3 ml Documented by: Benzonatate (Benzonatate 100 Mg Cap) 200 mg PO Q8H PRN PRN Reason: Cough Dexamethasone (Dexamethasone 4 Mg Tab) 6 mg PO DAILY RIANA Stop: 03/25/21 09:01 Guaifenesin/Codeine Phosphate (Codeine/Guaifenesin 10-100 Mg/5 Ml Syrup 5 Ml Cup) 5 ml PO Q4H PRN PRN Reason: Cough Remdesivir 100 mg/ Sodium (Chloride) 100 mls @ 100 mls/hr IV Q24H [facility] Stop: 03/20/21 17:59 Ondansetron HCl (Ondansetron 4 Mg/2 Ml Sdv) 4 mg IV Q6H PRN PRN Reason: Nausea/Vomiting Discontinued Medications Dexamethasone (Dexamethasone 4 Mg Tab) 6 mg PO ONETIME ONE Stop: 03/16/21 13:09 Last Admin: 03/16/21 13:20 Dose: 6 mg Documented by: Enoxaparin Sodium (Enoxaparin 40 Mg/0.4 Ml Syringe) 40 mg SUBCUT DAILY [facility] Remdesivir 200 mg/ Sodium (Chloride) 250 mls @ 250 mls/hr IV ONETIME ONE Stop: 03/16/21 17:59 Last Admin: 03/16/21 17:03 Dose: 250 mls/hr Documented by: Ketorolac Tromethamine (Ketorolac 30 Mg/Ml Sdv) 30 mg IVPUSH ONETIME ONE Stop: 03/16/21 13:09 Last Admin: 03/16/21 13:19 Dose: 30 mg Documented by: Lorazepam (Lorazepam 2 Mg/Ml Sdv) 0.5 mg IVPUSH ONETIME ONE Stop: 03/16/21 13:09 Last Admin: 03/16/21 13:19 Dose: 0.5 mg Documented by: Trazodone HCl (Trazodone 50 Mg Tab) 50 mg PO ONETIME PRN PRN Reason: Sleep Last Admin: 03/17/21 02:13 Dose: 50 mg Documented by: - Exam Quality Assessment: Supplemental Oxygen (2L), DVT Prophylaxis. No: Urine Catheter General: Alert, Oriented, Cooperative, Moderate Distress (Very anxious ) HEENT: Pupils Equal, Pupils Reactive, Mucous Membr. Moist/[place] Neck: Supple, Trachea Midline Lungs: Normal Respiratory Effort (Tachypnea), Decreased Breath Sounds, Crackles. No: Rhonchi Cardiovascular: Regular Rate, Regular Rhythm GI/Abdominal Exam: Normal Bowel Sounds, Soft, Non-Tender, No Distention (Male) Exam: Deferred Back Exam: Normal Inspection, Full Range of Motion Extremities: Normal Inspection, Normal Range of Motion, Non-Tender, No Pedal Ed micha, Normal Capillary Refill Skin: Warm, Dry, Intact Neurological: No New Focal Deficit Psy/Mental Status: Alert, Anxious. No: Agitated - Patient Data Lab Results Last 24 hrs: Laboratory Results - last 24 hr 03/16/21 03/16/21 03/16/21 Range/Units 12:20 12:55 12:55 WBC 5.42 (4.23-9.07) K/mm3 RBC 5.74 (4.63-6.08) M/mm3 Hgb 16.5 (13.7-17.5) gm/dl Hct 51.5 H (40.1-51.0) % MCV 89.7 (79.0-92.2) fl MCH 28.7 (25.7-32.2) pg MCHC 32.0 L (32.2-35.5) g/dl RDW Std Deviation 47.1 H (35.1-43.9) fL Plt Count 152 L (163-337) K/mm3 MPV 11.6 (9.4-12.3) fl Neut % (Auto) 82.2 H (34.0-67.9) % Lymph % (Auto) 11.1 L (21.8-53.1) % Whitley % (Auto) 5.9 (5.3-12.2) % Eos % (Auto) 0.2 L (0.8-7.0) Baso % (Auto) 0.2 (0.1-1.2) % Neut # (Auto) 4.46 (1.78-5.38) K/mm3 Lymph # (Auto) 0.60 L (1.32-3.57) K/mm3 Whitley # (Auto) 0.32 (0.30-0.82) K/mm3 Eos # (Auto) 0.01 L (0.04-0.54) K/mm3 Baso # (Auto) 0.01 (0.01-0.08) K/mm3 Manual Slide Review D-Dimer, Quantitative 0.76 H (0.19-0.50) mg/L Sodium (136-145) mEq/L Potassium (3.5-5.1) mEq/L Chloride (98-107) mEq/L Carbon Dioxide (21-32) mEq/L Anion Gap (5-15) BUN (7-18) mg/dL Creatinine (0.7-1.3) mg/dL Est Cr Clr Drug Dosing mL/min Estimated GFR (MDRD) (>60) mL/min BUN/Creatinine Ratio (14-18) Glucose (70-99) mg/dL Calcium (8.5-10.1) mg/dL Total Bilirubin (0.2-1.0) mg/dL AST (15-37) U/L ALT (16-63) U/L Alkaline Phosphatase (46-116) U/L Troponin I (0.00-0.056) ng/mL C-Reactive Protein (<1.0) mg/dL NT-Pro-B Natriuret Pep (0-125) pg/mL Total Protein (6.4-8.2) g/dl Albumin (3.4-5.0) g/dl Globulin gm/dL Albumin/Globulin Ratio (1-2) SARS-CoV-2 RNA (DERRELL) Positive H (NEGATIVE) 03/16/21 03/16/21 03/17/21 Range/Units 12:55 12:55 06:57 WBC 4.01 L (4.23-9.07) K/mm3 RBC 6.25 H (4.63-6.08) M/mm3 Hgb 18.1 H D (13.7-17.5) gm/dl Hct 54.8 H (40.1-51.0) % MCV 87.7 (79.0-92.2) fl MCH 29.0 (25.7-32.2) pg MCHC 33.0 (32.2-35.5) g/dl RDW Std Deviation 47.1 H (35.1-43.9) fL Plt Count 81 L (163-337) K/mm3 MPV 11.7 (9.4-12.3) fl Neut % (Auto) 70.7 H (34.0-67.9) % Lymph % (Auto) 18.2 L (21.8-53.1) % Whitley % (Auto) 6.7 (5.3-12.2) % Eos % (Auto) 3.2 (0.8-7.0) Baso % (Auto) 0.0 L (0.1-1.2) % Neut # (Auto) 2.83 (1.78-5.38) K/mm3 Lymph # (Auto) 0.73 L (1.32-3.57) K/mm3 Whitley # (Auto) 0.27 L (0.30-0.82) K/mm3 Eos # (Auto) 0.13 (0.04-0.54) K/mm3 Baso # (Auto) 0.00 L (0.01-0.08) K/mm3 Manual Slide Review Abnormal smear D-Dimer, Quantitative (0.19-0.50) mg/L Sodium 137 (136-145) mEq/L Potassium 3.8 (3.5-5.1) mEq/L Chloride 102 (98-107) mEq/L Carbon Dioxide 27 (21-32) mEq/L Anion Gap 11.8 (5-15) BUN 18 (7-18) mg/dL Creatinine 1.3 (0.7-1.3) mg/dL Est Cr Clr Drug Dosing 69.61 mL/min Estimated GFR (MDRD) 56 (>60) mL/min BUN/Creatinine Ratio 13.8 L (14-18) Glucose 152 H (70-99) mg/dL Calcium 8.5 (8.5-10.1) mg/dL Total Bilirubin 0.5 (0.2-1.0) mg/dL AST 37 (15-37) U/L ALT 34 (16-63) U/L Alkaline Phosphatase 110 (46-116) U/L Troponin I < 0.017 (0.00-0.056) ng/mL C-Reactive Protein 5.7 H* (<1.0) mg/dL NT-Pro-B Natriuret Pep 58 (0-125) pg/mL Total Protein 7.1 (6.4-8.2) g/dl Albumin 2.9 L (3.4-5.0) g/dl Globulin 4.2 gm/dL Albumin/Globulin Ratio 0.7 L (1-2) SARS-CoV-2 RNA (DERRELL) (NEGATIVE) Result Diagrams: 03/17/21 06:57 03/17/21 06:57 Fredo Results Last 24 hrs: Microbiology 03/16/21 12:20 Influenza Type A Antigen Screen - Final Nasal, Unspecified NEGATIVE INFLUENZA A VIRUS AG REFERENCE RANGE: NEGATIVE Influenza Type B Antigen Screen - Final NEGATIVE INFLUENZA B VIRUS AG REFERENCE RANGE: NEGATIVE Sepsis Event Note - Evaluation Sepsis Screening Result: No Definite Risk - Focused Exam Vital Signs: Vital Signs Temp Pulse Pulse Resp BP Pulse Ox 03/17/21 04:08 98.2 F 88 16 128/77 86 L 03/17/21 01:06 77 92 L - Problem List & Annotations (1) Anxiety SNOMED Code(s): 05858210 Code(s): F41.9 - ANXIETY DISORDER, UNSPECIFIED Status: Acute Priority: High Current Visit: Yes (2) Hypoxia SNOMED Code(s): 853705478 Code(s): R09.02 - HYPOXEMIA Status: Acute Priority: High Current Visit: Yes (3) Pneumonia due to COVID-19 virus SNOMED Code(s): 769407330932100172 Code(s): U07.1 - COVID-19; J12.82 - PNEUMONIA DUE TO CORONAVIRUS DISEASE 2019 Status: Acute Priority: High Current Visit: Yes (4) Claustrophobia SNOMED Code(s): 94014039 Code(s): F40.240 - CLAUSTROPHOBIA Status: Acute Priority: High Current Visit: Yes (5) Thrombocytopenia SNOMED Code(s): 599157923 Code(s): D69.6 - THROMBOCYTOPENIA, UNSPECIFIED Status: Acute Priority: Medium Current Visit: Yes (6) Polycythemia SNOMED Code(s): 591528837 Code(s): D75.1 - SECONDARY POLYCYTHEMIA Status: Acute Priority: Medium Current Visit: Yes (7) Elevated d-dimer SNOMED Code(s): 656926269 Code(s): R79.89 - OTHER SPECIFIED ABNORMAL FINDINGS OF BLOOD CHEMISTRY Status: Acute Priority: Medium Current Visit: Yes (8) Elevated C-reactive protein (CRP) SNOMED Code(s): 812156644357715 Code(s): R79.82 - ELEVATED C-REACTIVE PROTEIN (CRP) Status: Acute Prio rity: Medium Current Visit: Yes - Problem List Review Problem List Initiated/Reviewed/Updated: Yes - Assessment Assessment:: 03/16/2021 Ignacio is a 60yo white male who presented to the ED on 03/16/2021 due to worsening shortness of breath secondary to covid-19 pneumonia. Symptoms began 7 days prior to admission. COVID-19 test was positive in the ED and was his first test. CXR showed slightly patchy infiltrates in lungs bilaterally consistent with COVID-19 pneumonia. He has not received COVID-19 vaccination. He has no other medical problems. O2 and dexamethasone were started in the ED. 03/17/2021 This is a 60-year-old male who was admitted to the floor for COVID-19 pneumonia treatment. Denies any past medical history but states he is claustrophobic and does have rather significant anxiety. He is on no medications for this. He is receiving remdesivir and dexamethasone currently. He is on 2 L of oxygen via nasal cannula. During examination he is very anxious. 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 He does state that he has difficulty riding in the backseat of vehicles because of this. Patient was started on 0.25 mg every 8 hour as needed Xanax and we will adjust the dosing as needed. Psychiatry consultation with Dr. Barron was discussed and patient ultimately agrees to this. Concern is that if patient will require high flow oxygenation or BiPAP/CPAP he will not tolerate it. We discussed opening the windows to allow for outside view and breathing methods to work through anxiety. On reevaluation he was doing much better. He is utilizing I-S and Acapella. We will continue current treatment plan. Length of stay likely 4 to 5 days for COVID-19 treatment pending progress. - Plan Plan:: Hypoxia Pneumonia due to COVID-19 virus Elevated D-Dimer Elevated CRP * O2 as needed with goal saturations of 88-95% * IS/Acapella * Consult RT * Airborne/contact precautions * Telemetry/Continuous pulse oximetry * PRN Duonebs Q4th * PRN Albuterol MDI * Dexamethasone 6mg daily for 10 days * Remdesivir 5 day course * Procalcitonin pending * Ambulate around room * Prone whenever able * Daily labs as ordered Claustrophobia Anxiety * Start 0.25mg Xanax PRN q8hr for anxiety * Psychiatry consultation Thrombocytopenia Polycythemia * Discontinue Lovenox and avoid pharmacological DVT prophylaxis * Repeat CBC at 1300 today. Code status: Full code PCP: None DVT Prophylaxis: GAVIOTA timmons (pharmacological prophylaxis contraindicated due to thrombocytopenia. Patient will likely not tolerate SCDs due to anxiety/claustrophobia) Disposition: Patient admitted to the floor for management of his COVID-19 pneumonia. Likely length of stay 4 to 5 days pending improvement.
[2021-03-17] MEDS ORDERED: Dexamethasone 4 MG Tab PO SCH (09:00)
[2021-03-17] MEDS ORDERED: Enoxaparin 40 MG/0.4 ML Syringe SUBCUT SCH (09:00)
[2021-03-17] MEDS ORDERED: ALPRAZolam 0.25 MG Tab PO PRN (09:59)
--- NOTE | 2021-03-17 14:59 | PCM.DCSUM1 ---
Discharge Summary - Hospital Course HPI Initial Comments: Ignacio is a 60yo white male who presented to the ED on 03/16/2021 due to worsening shortness of breath. History was difficult to obtain from patient as he was moderately sedated, so most of history is from ED documentation. Symptoms started 7 days ago and include fever, chills, cough, shortness of breath, and fatigue. He denies abdominal pain, nausea, vomiting or diarrhea. Eating and drinking has been normal. He denies any other medical problems. Denies any sick contacts and has not received COVID-19 vaccination. COVID-19 test was positive in the ED. CRP was 5.7, D-dimer was 0.76 in the ED. CXR showed slightly patchy infiltrates in lungs bilaterally consistent with COVID-19 pneumonia. Patient received Ativan 0.5mg and Toradol 30mg secondary to anxiety and claustrophobia from telemetry monitors and pain of 11/20 in ED. Diagnosis: Stroke: No - Discharge Data Discharge Date: 03/17/21 (Admit date: 03/16/2021) Discharge Disposition: Against Medical Advice 07 Condition: Good - Referral to Home Health Primary Care Physician: PCP None - Discharge Diagnosis/Problem(s) (1) Anxiety SNOMED Code(s): 15328254 ICD Code: F41.9 - ANXIETY DISORDER, UNSPECIFIED Status: Acute Priority: High Current Visit: Yes (2) Hypoxia SNOMED Code(s): 945128215 ICD Code: R09.02 - HYPOXEMIA Status: Acute Priority: High Current Visit: Yes (3) Pneumonia due to COVID-19 virus SNOMED Code(s): 521134030849011364 ICD Code: U07.1 - COVID-19; J12.82 - PNEUMONIA DUE TO CORONAVIRUS DISEASE 2019 Status: Acute Priority: High Current Visit: Yes (4) Claustrophobia SNOMED Code(s): 21551939 ICD Code: F40.240 - CLAUSTROPHOBIA Status: Acute Priority: High Current Visit: Yes (5) Thrombocytopenia SNOMED Code(s): 972149749 ICD Code: D69.6 - THROMBOCYTOPENIA, UNSPECIFIED Status: Ruled-out Priority: Medium Current Visit: Yes (6) Polycythemia SNOMED Code(s): 295588118 ICD Code: D75.1 - SECONDARY POLYCYTHEMIA Status: Ruled-out Priority: Medium Current Visit: Yes (7) Elevated d-dimer SNOMED Code(s): 222719791 ICD Code: R79.89 - OTHER SPECIFIED ABNORMAL FINDINGS OF BLOOD CHEMISTRY Status: Acute Priority: Medium Current Visit: Yes (8) Elevated C-reactive protein (CRP) SNOMED Code(s): 626239951189036 ICD Code: R79.82 - ELEVATED C-REACTIVE PROTEIN (CRP) Status: Acute Priority: Medium Current Visit: Yes - Patient Summary/Data Consults: Consultations 03/16/21 15:59 PT Evaluation and Treatment [CONS] Routine 03/17/21 10:00 Consult to Physician [CONS] Routine 03/17/21 11:08 Consult to Respiratory Therapy [Respiratory Care Assess and Treatment] [CONS] Routine Labs Pending at D/C: None Recommended Follow-up Testing/Procedures: Follow-up with primary care provider within 5 to 7 days, sooner if needed. Follow-up with psychiatry within 2 to 4 weeks, sooner if needed Hospital Course: This is a 60-year-old male presents to ED on 03/16/2021 with concerns of Covid symptoms. He complains of fever, chills, body aches, fatigue, cough, shortness of breath, pleuritic chest pain with deep inspiration. He reports symptoms began approximately 6 days prior. He has not been vaccinated against Covid. In the ED his WBC was normal at 5.42. D-dimer was elevated at 0.76. Neutrophils are elevated 82.2%. Troponin was negative. CRP was 5.7. Albumin was 2.9. He was given dexamethasone and remdesivir to begin his Covid treatment. He was also given Toradol and lorazepam as he was reportedly having significant anxiety. Patient reports that he gets very claustrophobic. Chest x-ray obtained shows mild bilateral Covid pneumonia. He was noted to be hypoxic and was requiring between 2 and 4 L of oxygen. Given his anxiety he did see Dr. Barron who recommended 50 mg Luvox at bedtime and multiple supplements. Labs this morning showed a elevated hemoglobin and thrombocytopenia. Repeat labs are within normal limits and it is felt this is likely a lab error. On admission patient did have some acute renal injury but this did resolve. Procalcitonin was obtained and was 0.14. Plan was to continue remdesivir and dexamethasone for Covid treatment however this afternoon patient reported that he cannot stay any longer because he is too claustrophobic and anxious. Risks of leaving were discussed with the patient including possible worsening of Covid symptoms, respiratory failure, VTE, and potentially even . Attempted multiple times to convince patient to stay however he was unwavering. Patient still reported that he wants to leave AMA and form was signed. We were able to set the patient up for oxygen prior to leaving and he should wear 2 L at all times. We also sent 8 more days of 6 mg daily dexamethasone and 50 mg Luvox treatment as recommended by Dr. Barron. Recommend patient follow-up with primary care provider within 5 to 7 days of leaving or sooner if needed. Recommend psychiatry follow-up within 2 to 4 weeks. Patient was advised to continue to utilize incentive spirometry and Acapella. Nursing did provide patient with a fingertip pulse oximeter and he was instructed to check his readings twice daily. He does report that he has a girlfriend who is a former button reclaimer who can keep tabs on him. He was instructed to seek medical help if his saturations remain less than 88 for any extended length of time. Albuterol inhaler was also prescribed for as needed use due to shortness of breath. Patient was instructed to contact 911 or return to emergency room should symptoms worsen. Patient left AMA. - Patient Instructions Diet: Usual Diet as Tolerated Activity: As Tolerated Driving: Do Not Drive (Until feeling better ) Showering/Bathing: May Shower Notify Provider of: Fever, Increased Pain, Nausea and/or Vomiting Other/Special Instructions: Recommend follow-up with primary care provider within 5 to 7 days, sooner if needed. Continue to wear your oxygen as directed. 2L at all times. Continue to utilize your incentive spirometer (clear/blue device you inhale through) and Acapella (tube you blow through) for 1 to 2 weeks or until symptoms resolve. You were provided a pulse oximeter. Take these readings twice a day and record them as directed. Seek medical treatment if your saturations remain less than 88% for any length of time. You were prescribed a steroid which you should take daily as instructed. You were started on a new antidepressant/antianxiety medication while here. Please take this as prescribed. Recommend psychiatric follow-up within 2 to 4 weeks. You should continue to isolate/quarantine for 10 days from symptom onset. You will likely be contacted by a grommet man from the [facility] to discuss your symptoms. Please follow their directions. As we discussed you are leaving AGAINST MEDICAL ADVICE. We will gladly see you again in the emergency room if needed. As we discussed you are at high risk for progression of your disease including possible respiratory arrest, blood clots, and . Please do not hesitate to return the emergency room or contact an ambulance if needed. - Discharge Plan *PRESCRIPTION DRUG MONITORING PROGRAM REVIEWED*: No *COPY OF PRESCRIPTION DRUG MONITORING REPORT IN PATIENT MAGDALENA: No Prescriptions/Med Rec: dexAMETHasone [Dexamethasone] 6 mg PO DAILY 8 Days #12 tablet fluvoxaMINE 50 mg PO BEDTIME #20 tablet Albuterol [Proventil HFA] 2 puff INH Q4H PRN #1 inhaler PRN Reason: Shortness Of Breath Home Medications: Home Meds Albuterol [Proventil HFA] 2 puff INH Q4H PRN #1 inhaler 03/17/21 [Rx] dexAMETHasone [Dexamethasone] 6 mg PO DAILY 8 Days #12 tablet 03/17/21 [Rx] fluvoxaMINE 50 mg PO BEDTIME #20 tablet 03/17/21 [Rx] Oxygen Therapy Mode: Nasal Cannula Oxygen Flow Rate (L/min): 2 Maintain SpO2% greater than: 88 Patient Handouts: COVID-19 Frequently Asked Questions, COVID-19, How to Use an Incentive Spirometer, 10 Things You Can Do to Manage Your COVID-19 Symptoms at Home - [facility] (11/26/2020), Managing Anxiety, Adult Forms: ED Department Discharge Referrals: PCP,None [Primary Care Provider] - - Discharge Summary/Plan Comment DC Time >30 min.: No Total # of Minutes for Discharge Time: 20 - General Info Date of Service: 03/17/21 Admission Dx/Problem (Free Text: Admission Diagnosis/Problem Admission Diagnosis/Problem Hypoxia Functional Status: Reports: Pain Controlled, Tolerating Diet, Ambulating, Urinating, Incentive Spirometry, Other (Acapella). Denies: New Symptoms - Review of Systems General: Reports: No Symptoms. Denies: Fever, Weakness, Fatigue, Malaise HEENT: Reports: No Symptoms. Denies: Headaches, Sore Throat Pulmonary: Reports: Shortness of Breath, Pleuritic Chest Pain, Cough, Sputum. Denies: Wheezing Cardiovascular: Reports: Dyspnea on Exertion. Denies: Chest Pain, Palpitations, Edema Gastrointestinal: Reports: No Symptoms. Denies: Abdominal Pain, Constipation, Diarrhea, Nausea, Vomiting Genitourinary: Reports: No Symptoms. Denies: Pain Musculoskeletal: Reports: No Symptoms Skin: Reports: No Symptoms. Denies: Cyanosis Neurological: Reports: No Symptoms. Denies: Confusion, Headache, Numbness, Pre- Existing Deficit, Syncope, Tingling, Difficulty Walking, Weakness, Gait Disturbance Psychiatric: Reports: Anxiety - Patient Data Vitals - Most Recent: Last Vital Signs Temp 99.1 F 03/17/21 11:47 Pulse 100 03/17/21 11:47 Resp 16 03/17/21 11:47 BP 120/88 03/17/21 11:44 Pulse Ox 93 L 03/17/21 12:00 Weight - Most Recent: 177 lb 6.4 oz I&O - Last 24 hours: Intake & Output 03/16/21 03/17/21 03/17/21 22:59 06:59 14:59 Intake Total 600 360 Output Total 400 Balance 200 360 Lab Results - Last 24 hrs: Laboratory Results - last 24 hr 03/16/21 03/16/21 03/17/21 Range/Units 12:55 12:55 06:57 WBC 4.01 L (4.23-9.07) K/mm3 RBC 6.25 H (4.63-6.08) M/mm3 Hgb 18.1 H D (13.7-17.5) gm/dl Hct 54.8 H (40.1-51.0) % MCV 87.7 (79.0-92.2) fl MCH 29.0 (25.7-32.2) pg MCHC 33.0 (32.2-35.5) g/dl RDW Std Deviation 47.1 H (35.1-43.9) fL Plt Count 81 L (163-337) K/mm3 MPV 11.7 (9.4-12.3) fl Neut % (Auto) 70.7 H (34.0-67.9) % Lymph % (Auto) 18.2 L (21.8-53.1) % [place] % (Auto) 6.7 (5.3-12.2) % Eos % (Auto) 3.2 (0.8-7.0) Baso % (Auto) 0.0 L (0.1-1.2) % Neut # (Auto) 2.83 (1.78-5.38) K/mm3 Lymph # (Auto) 0.73 L (1.32-3.57) K/mm3 [place] # (Auto) 0.27 L (0.30-0.82) K/mm3 Eos # (Auto) 0.13 (0.04-0.54) K/mm3 Baso # (Auto) 0.00 L (0.01-0.08) K/mm3 Manual Slide Review Abnormal smear Sodium (136-145) mEq/L Potassium (3.5-5.1) mEq/L Chloride (98-107) mEq/L Carbon Dioxide (21-32) mEq/L Anion Gap (5-15) BUN (7-18) mg/dL Creatinine (0.7-1.3) mg/dL Est Cr Clr Drug Dosing mL/min Estimated GFR (MDRD) (>60) mL/min BUN/Creatinine Ratio (14-18) Glucose (70-99) mg/dL Calcium (8.5-10.1) mg/dL Phosphorus (2.6-4.7) mg/dL Magnesium (1.8-2.4) mg/dL Total Bilirubin (0.2-1.0) mg/dL AST (15-37) U/L ALT (16-63) U/L Alkaline Phosphatase (46-116) U/L C-Reactive Protein (<1.0) mg/dL NT-Pro-B Natriuret Pep 58 (0-125) pg/mL Total Protein (6.4-8.2) g/dl Albumin (3.4-5.0) g/dl Globulin gm/dL Albumin/Globulin Ratio (1-2) Procalcitonin 0.14 H ng/mL 03/17/21 03/17/21 Range/Units 06:57 13:55 WBC 7.64 (4.23-9.07) K/mm3 RBC 5.83 (4.63-6.08) M/mm3 Hgb 16.7 (13.7-17.5) gm/dl Hct 51.2 H (40.1-51.0) % MCV 87.8 (79.0-92.2) fl MCH 28.6 (25.7-32.2) pg MCHC 32.6 (32.2-35.5) g/dl RDW Std Deviation 45.7 H (35.1-43.9) fL Plt Count 179 D (163-337) K/mm3 MPV 11.5 (9.4-12.3) fl Neut % (Auto) 83.1 H (34.0-67.9) % Lymph % (Auto) 8.9 L (21.8-53.1) % [place] % (Auto) 7.7 (5.3-12.2) % Eos % (Auto) 0 L (0.8-7.0) Baso % (Auto) 0.0 L (0.1-1.2) % Neut # (Auto) 6.35 H (1.78-5.38) K/mm3 Lymph # (Auto) 0.68 L (1.32-3.57) K/mm3 [place] # (Auto) 0.59 (0.30-0.82) K/mm3 Eos # (Auto) 0.00 L (0.04-0.54) K/mm3 Baso # (Auto) 0.00 L (0.01-0.08) K/mm3 Manual Slide Review Sodium 139 (136-145) mEq/L Potassium 4.4 (3.5-5.1) mEq/L Chloride 103 (98-107) mEq/L Carbon Dioxide 23 (21-32) mEq/L Anion Gap 17.4 H (5-15) BUN 24 H (7-18) mg/dL Creatinine 1.1 (0.7-1.3) mg/dL Est Cr Clr Drug Dosing 81.28 mL/min Estimated GFR (MDRD) > 60 (>60) mL/min BUN/Creatinine Ratio 21.8 H (14-18) Glucose 127 H (70-99) mg/dL Calcium 8.6 (8.5-10.1) mg/dL Phosphorus 3.8 (2.6-4.7) mg/dL Magnesium 2.0 (1.8-2.4) mg/dL Total Bilirubin 0.5 (0.2-1.0) mg/dL AST 46 H (15-37) U/L ALT 36 (16-63) U/L Alkaline Phosphatase 120 H (46-116) U/L C-Reactive Protein 5.9 H* (<1.0) mg/dL NT-Pro-B Natriuret Pep (0-125) pg/mL Total Protein 7.2 (6.4-8.2) g/dl Albumin 2.9 L (3.4-5.0) g/dl Globulin 4.3 gm/dL Albumin/Globulin Ratio 0.7 L (1-2) Procalcitonin ng/mL BEN Results - Last 24 hrs: Microbiology 03/16/21 12:20 Influenza Type A Antigen Screen - Final Nasal, Unspecified NEGATIVE INFLUENZA A VIRUS AG REFERENCE RANGE: NEGATIVE Influenza Type B Antigen Screen - Final NEGATIVE INFLUENZA B VIRUS AG REFERENCE RANGE: NEGATIVE Med Orders - Current: Current Medications Acetaminophen (Acetaminophen 325 Mg Tab) 650 mg PO Q4H PRN PRN Reason: Pain (Mild 1-3)/fever Hydrocodone Bitart/Acetaminophen (Acetaminophen/Hydrocodone 325-5 Mg Tab) 1 tab PO Q4H PRN PRN Reason: Pain (moderate 4-6) Albuterol (Albuterol 6.7 Gm Inhaler) 0 gm INH Q4H PRN PRN Reason: Shortness of Breath Albuterol/Ipratropium (Albuterol/Ipratropium 3.0-0.5 Mg/3 Ml Neb Soln) 3 ml NEB Q4HRRT PRN PRN Reason: Shortness of Breath Last Admin: 03/16/21 20:18 Dose: 3 ml Documented by: Alprazolam (Alprazolam 0.25 Mg Tab) 0.25 mg PO Q8H PRN PRN Reason: Anxiety Last Admin: 03/17/21 10:32 Dose: 0.25 mg Documented by: Benzonatate (Benzonatate 100 Mg Cap) 200 mg PO Q8H PRN PRN Reason: Cough Dexamethasone (Dexamethasone 4 Mg Tab) 6 mg PO DAILY RIANA Stop: 03/25/21 09:01 Last Admin: 03/17/21 09:56 Dose: 6 mg Documented by: Fluvoxamine Maleate (Fluvoxamine 50 Mg Tab) 50 mg PO BEDTIME [facility] Guaifenesin/Codeine Phosphate (Codeine/Guaifenesin 10-100 Mg/5 Ml Syrup 5 Ml Cup) 5 ml PO Q4H PRN PRN Reason: Cough Remdesivir 100 mg/ Sodium (Chloride) 100 mls @ 100 mls/hr IV Q24H RIANA Stop: 03/20/21 17:59 Ondansetron HCl (Ondansetron 4 Mg/2 Ml Sdv) 4 mg IV Q6H PRN PRN Reason: Nausea/Vomiting Discontinued Medications Dexamethasone (Dexamethasone 4 Mg Tab) 6 mg PO ONETIME ONE Stop: 03/16/21 13:09 Last Admin: 03/16/21 13:20 Dose: 6 mg Documented by: Enoxaparin Sodium (Enoxaparin 40 Mg/0.4 Ml Syringe) 40 mg SUBCUT DAILY [facility] Remdesivir 200 mg/ Sodium (Chloride) 250 mls @ 250 mls/hr IV ONETIME ONE Stop: 03/16/21 17:59 Last Admin: 03/16/21 17:03 Dose: 250 mls/hr Documented by: Ketorolac Tromethamine (Ketorolac 30 Mg/Ml Sdv) 30 mg IVPUSH ONETIME ONE Stop: 03/16/21 13:09 Last Admin: 03/16/21 13:19 Dose: 30 mg Documented by: Lorazepam (Lorazepam 2 Mg/Ml Sdv) 0.5 mg IVPUSH ONETIME ONE Stop: 03/16/21 13:09 Last Admin: 03/16/21 13:19 Dose: 0.5 mg Documented by: Trazodone HCl (Trazodone 50 Mg Tab) 50 mg PO ONETIME PRN PRN Reason: Sleep Last Admin: 03/17/21 02:13 Dose: 50 mg Documented by: - Exam Quality Assessment: Reports: Supplemental Oxygen (2L), DVT Prophylaxis General: Reports: Alert, Oriented, Cooperative, Moderate Distress (Very anxious) HEENT: Reports: Pupils Equal, Pupils Reactive, Mucous Membr. Moist/[place] Neck: Reports: Supple, Trachea Midline Lungs: Reports: Normal Respiratory Effort, Decreased Breath Sounds, Crackles Cardiovascular: Reports: Regular Rate, Regular Rhythm GI/Abdominal Exam: Normal Bowel Sounds, Soft, Non-Tender, No Distention (Male) Exam: Deferred Rectal (Males) Exam: Deferred Back Exam: Reports: Normal Inspection, Full Range of Motion Extremities: Normal Inspection, Normal Range of Motion, Non-Tender, No Pedal [place] ma, Normal Capillary Refill Skin: Reports: Warm, Dry, Intact Neurological: Reports: No New Focal Deficit Psy/Mental Status: Reports: Alert, Anxious. Denies: Agitated
[2021-03-17] MEDS ORDERED: REMDESIVIR 100 MG in Sodium Chloride 0.9% 100 ML IV SCH (17:00)
[2021-03-17] MEDS ORDERED: fluvoxaMINE 50 MG Tab PO SCH (21:00)
== END 2021-03-17 15:01 | disposition left against medical advice (07) | DRG 177 ==
LOC: JD.ED 11:48 → JD.MS 15:13
PROVIDERS: ADMIT Family Medicine; ATTEND Family Medicine
PROC: XW033E5 Introduction of Remdesivir Anti-infective into Peripheral Vein, Percutaneous Approach, New Technology Group 5 (ICD-10-PCS; principal; 2021-03-16)
PROC: 3E0DX3Z Introduction of Anti-inflammatory into Mouth and Pharynx, External Approach (ICD-10-PCS; 2021-03-16)
PROC: 8E0ZXY6 Isolation (ICD-10-PCS; 2021-03-16)
DX: U07.1 COVID-19 (principal); J12.82 Pneumonia due to coronavirus disease 2019; N17.9 Acute kidney failure, unspecified; F41.9 Anxiety disorder, unspecified; F40.240 Claustrophobia; D69.6 Thrombocytopenia, unspecified; D75.1 Secondary polycythemia; R79.82 Elevated C-reactive protein (CRP); Z79.899 Other long term (current) drug therapy; R79.1 Abnormal coagulation profile; R79.89 Other specified abnormal findings of blood chemistry
CPT/HCPCS: 36415; 71045; 71045-26; 80053; 83735; 83880; 84100; 84145; 84484; 85025; 85379; 86140; 87804; 93005; 94640; 94667; 94668; 94762; 96374; 96375; 97161-GP; 97530-GP; 99221; 99233; 99285-25; A9270-GY; J1885; J2060; J7050; J7620-GY; J8540; U0002

== ENCOUNTER 2021-09-12 19:30 | Emergency (ER) | payer SELFPAY ==
[2021-09-12] MEDS ORDERED: Diphtheria,Pertussis(Acell),Tetanus Vaccine 0.5 ML Syringe IM ONE (20:09)
[2021-09-12] MEDS ORDERED: Lidocaine 1% with EPINEPHrine 1:100,000 10 ML MDV INJECT ONE (20:09)
[2021-09-12] MEDS ORDERED: Lidocaine 1% with EPINEPHrine 1:100,000 20 ML MDV ONE (20:58)
== END 2021-09-12 22:10 | disposition home or self-care (01) ==
LOC: JD.ED 19:30
DX: S81.012A Laceration without foreign body, left knee, initial encounter (principal); Z88.0 Allergy status to penicillin; Z88.5 Allergy status to narcotic agent; Z87.891 Personal history of nicotine dependence; Z86.16 Personal history of COVID-19; Z23 Encounter for immunization; W26.8XXA Contact with other sharp object(s), not elsewhere classified, initial encounter
CPT/HCPCS: 12002; 12004; 73562-26-LT; 73562-LT; 90471; 90715; 99283; 99283-25

== ENCOUNTER 2021-09-13 14:26 | Emergency (ER) | payer SELFPAY ==
[2021-09-13] MEDS ORDERED: Acetaminophen/HYDROcodone 325-5 MG Tab PO ONE (14:57)
== END 2021-09-13 15:45 | disposition home or self-care (01) ==
LOC: JD.ED 14:26
DX: S81.012A Laceration without foreign body, left knee, initial encounter (principal); Z87.891 Personal history of nicotine dependence; Z88.0 Allergy status to penicillin; Z88.5 Allergy status to narcotic agent; W22.8XXA Striking against or struck by other objects, initial encounter
CPT/HCPCS: 99283; A9270

== ENCOUNTER 2023-11-25 17:28 | Emergency (ER) | payer SELFPAY ==
[2023-11-25] MEDS ORDERED: Sodium Chloride 0.9% 10 ML Syringe FLUSH PRN (17:58)
[2023-11-25] MEDS ORDERED: Sodium Chloride 0.9% 500 ML IV SCH (18:00)
[2023-11-25 18:04] LABS: BASOPHILS PERCENT AUTO 0.5 % (0.0-1.0); EOSINOPHILS ABSOLUTE AUTO 0.1 K/mm3 (0.0-0.4); EOSINOPHILS PERCENT AUTO 1.5 % (0.0-6.0); HEMATOCRIT 46.4 % (42.0-52.0); HEMOGLOBIN 15.6 gm/dl (14.0-18.0); IMMATURE GRAN ABSOLUTE AUTO 0.02 K/mm3 (0.00-0.05); IMMATURE GRAN PERCENT AUTO 0.3 % (0.0-0.4); LYMPHOCYTES PERCENT AUTO 25.6 % (24.0-44.0); MEAN CORPUSCULAR HEMOGLOBIN 30.1 pg (28.0-32.0); MEAN CORPUSCULAR HGB CONC 33.6 g/dl (32.0-36.0); MEAN CORPUSCULAR VOLUME 89.6 fl (83.0-99.0); MEAN PLATELET VOLUME 10.6 fl (9.4-12.4); MONOCYTES ABSOLUTE AUTO 0.7 K/mm3 (0.0-0.8); MONOCYTES PERCENT AUTO 8.2 % (0.0-8.0); NEUTROPHILS ABSOLUTE AUTO 5.1 K/mm3 (1.8-7.7); NEUTROPHILS PERCENT AUTO 63.9 % (41.0-71.0); PLATELET COUNT,PLT 241 K/mm3 (150-400); RED BLOOD CELL COUNT 5.18 M/mm3 (4.52-5.90); WHITE BLOOD CELL COUNT,WBC 7.97 K/mm3 (3.9-11.3)
[2023-11-25 18:18] LABS: INR 0.99; PROTHROMBIN TIME 10.5 SECONDS (9.7-12.0)
[2023-11-25 18:19] LABS: PTT,PARTIAL THROMBOPLSTIN TIME 26.5 SECONDS (21.7-31.4)
[2023-11-25 18:27] LABS: ALBUMIN 3.6 g/dl (3.4-5.0); ANION GAP 13.8 (5-15); BILIRUBIN TOTAL 0.5 mg/dL (0.2-1.0); BUN/CREATININE RATIO 12.1 (14-18); CREATININE 1.4 mg/dL (0.7-1.3); EST CRCL DRUG DOSING (CG) 61.03 mL/min; POTASSIUM,K 3.8 mEq/L (3.5-5.1); PROTEIN TOTAL,TP 7.2 g/dl (6.4-8.2)
[2023-11-25] MEDS: Sodium Chloride 0.9% 100 ML IV SCH (18:29)
[2023-11-25] MEDS: Iopamidol 755 Mg/ML 100 ML Bottle IVPUSH ONE (18:29)
[2023-11-25] MEDS: Aspirin 81 MG Tab.Chew PO ONE (20:23)
== END 2023-11-25 20:24 | disposition home or self-care (01) ==
LOC: JD.ED 17:28
DX: I66.9 Occlusion and stenosis of unspecified cerebral artery (principal); Z88.0 Allergy status to penicillin; Z88.5 Allergy status to narcotic agent; Z79.899 Other long term (current) drug therapy; Z86.16 Personal history of COVID-19
CPT/HCPCS: 36415; 70450; 70496; 70498; 80053; 82947; 84484; 85025; 85610; 85730; 99284; A9270; J3490; Q9967